=== PATIENT | male | born 2000 | race Caucasian/White ===

== ENCOUNTER 2023-04-06 18:46 | Emergency (ER) | payer OTHER ==
[~2023-04-06] VITALS: Ht 175.3 cm; Wt 85.3 kg
[2023-04-06 18:55] VITALS: BP_SYST 132; PULSE 112; RESP 18; TEMP 98.3; O2SAT 98
[2023-04-06] MEDS ORDERED: IBUPROFEN 800 MG TABLET PO ONE (19:45)
[2023-04-06] MEDS ORDERED: KETOROLAC TROMETHAMINE 60 MG/2 ML VIAL IM ONE (20:15)
[2023-04-06] MEDS ORDERED: IBUP-1971 PO (21:43)
[2023-04-06] MEDS ORDERED: DICL20GE TP (21:43)
[2023-04-06 21:52] VITALS: BP_SYST 129; PULSE 99; RESP 18; TEMP 98.3; O2SAT 98
== END 2023-04-06 21:52 | disposition home or self-care (01) ==
LOC: SED 18:46
DX: S20.211A Contusion of right front wall of thorax, initial encounter (principal); Z79.899 Other long term (current) drug therapy; W20.8XXA Other cause of strike by thrown, projected or falling object, initial encounter; Y93.89 Activity, other specified; Y92.89 Other specified places as the place of occurrence of the external cause; Y99.8 Other external cause status
CPT/HCPCS: 99285; 71045; 84484; 36415; 93005; 96372; J1885